=== PATIENT | male | born 1955 | race Caucasian/White ===

== ENCOUNTER 2020-02-11 11:36 | Inpatient (IN) | payer MEDICARE ==
[2020-02-11] MEDS ORDERED: Potassium Replacement Protocol 1 EACH MISC MISCELLANE PRN (13:15)
[2020-02-11] MEDS ORDERED: Magnesium Replacement Protocol 1 EACH MISC MISCELLANE PRN (13:16)
[2020-02-11 14:44] LABS: Anisocytosis Slight; Basophils # (A) 0.1 k/uL (0-0.2); Basophils % (A) 1 %; Eosinophils # (A) 0.2 k/uL (0-0.7); Eosinophils % (A) 2 %; HCT 32.5 % (39.0-53.0); HGB 9.9 gm/dL (13.0-17.5); Hypochromasia Marked; Lymphocytes # (A) 0.7 k/uL (1.0-4.8); Lymphocytes % (A) 11 %; MCH 22.3 pg (25.0-35.0); MCHC 30.4 g/dL (31.0-37.0); MCV 73.3 fL (80.0-100.0); Mean Platelet Volume 7.3; Microcytosis Moderate; Monocytes # (A) 0.6 k/uL (0-1.0); Monocytes % (A) 8 %; Neutrophils # (A) 5.1 k/uL (1.3-7.7); Neutrophils % (A) 75 %; Platelet Count 370 k/uL (150-450); RBC 4.44 m/uL (4.30-5.90); RDW 17.1 % (11.5-15.5); WBC 6.9 k/uL (3.8-10.6)
[2020-02-11 14:52] LABS: Albumin 3.2 g/dL (3.5-5.0); Calcium 8.4 mg/dL (8.4-10.2); Potassium 3.5 mmol/L (3.5-5.1); Total Bilirubin 0.4 mg/dL (0.2-1.3); Total Protein 6.5 g/dL (6.3-8.2)
[2020-02-11 14:54] LABS: INR 1.1 (<1.2); Prothrombin Time 11.1 sec (9.0-12.0)
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
[2020-02-11] MEDS ORDERED: ASPIRIN 325 MG TAB PO SCH (17:00)
--- NOTE | 2020-02-11 17:07 | HP ---
HISTORY AND PHYSICAL A 64-year-old white male who is admitted with a stroke on transfer to the hospital here from the [facility] due to neurologist being on staff here and not at the other hospital. He was found to have a CTA an aneurysm for which a transfer to a tertiary center is being planned. They added Plavix here on top of his aspirin, which we have been giving him and lovastatin which is carry over from the hospital. Three neurologists were discussed with on the phone yesterday, although none were available physically. Patient's transfer is pending at this point due to a 7 mm basal aneurysm. His CAT scan of his brain showed diffuse encephalopathy septal encephalomalacia throughout his brain, unclear etiology. His stroke symptoms are greatly improved with a systolic blood pressure has been elevated with IV fluids and cut out a lot of the cardiology medicines that the nutrition technician put him on to lower his blood pressure. Blood pressure 169/113, O2 is 94%, temp 98.2, pulse 75, respiratory rate 18 to 20. CARDIOVASCULAR: S1, S2. LUNGS: Clear. GI: Soft. NEUROLOGIC: His range of motion is full now x4 extremities. He has no slurred speech. No facial asymmetry. ASSESSMENT: 1. Status post cerebrovascular accident due to hypoperfusion from treatment of congestive heart failure with elevated BNP per Cardiology at the of the other hospital. Improvement with increased blood pressure continued to give him symptom resolution. Neurology is seeing him currently and we need to transfer him for possible interventional radiology treatment of his basal aneurysm versus neurosurgical treatment. Blood pressure is being allowed to stay low high today from hypoperfusion stroke which the symptoms are resolved. He has acute on chronic anemia from unclear etiology. 2. Acute on chronic renal insufficiency secondary to unclear etiology. Most likely longstanding history of hypertension untreated. He has heart medicine from 5 years ago. He stopped them and has never been on them since after he had 5 stents put in his heart, luckily he is still alive. [place] basal aneurysm intervention. MMODL / IJN: [id number] /
[2020-02-11] MEDS: PANTOPRAZOLE 40 MG/10 ML VIAL IVP SCH (17:28)
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
[2020-02-11] MEDS: ATORVASTATIN 40 MG TAB PO SCH (20:45)
[2020-02-11] MEDS ORDERED: ASPIRIN 81 MG PO SCH (21:15)
[2020-02-11] MEDS ORDERED: SODIUM CHLORIDE 0.9% 1,000 ML IV SCH (21:15)
[2020-02-11] MEDS: LISINOPRIL 5 MG TAB PO SCH (21:25)
[2020-02-11] MEDS: METOPROLOL SUCCINATE (ER) 50 MG TAB.ER.24H PO SCH (21:25)
[2020-02-12] MEDS: hydrALAZINE HCL 20 MG/ML 1 ML VIAL IV SCH ×3 (00:38→11:30)
[2020-02-12 05:14] LABS: Anisocytosis Slight; Basophils # (A) 0.1 k/uL (0-0.2); Basophils % (A) 1 %; Eosinophils # (A) 0.3 k/uL (0-0.7); Eosinophils % (A) 4 %; HCT 34.1 % (39.0-53.0); HGB 10.2 gm/dL (13.0-17.5); Hypochromasia Marked; Lymphocytes # (A) 0.8 k/uL (1.0-4.8); Lymphocytes % (A) 10 %; MCH 22.2 pg (25.0-35.0); MCV 74.1 fL (80.0-100.0); Mean Platelet Volume 7.3; Microcytosis Moderate; Monocytes # (A) 0.6 k/uL (0-1.0); Monocytes % (A) 8 %; Neutrophils # (A) 6.1 k/uL (1.3-7.7); Neutrophils % (A) 75 %; Platelet Count 431 k/uL (150-450); RDW 17.1 % (11.5-15.5); WBC 8.2 k/uL (3.8-10.6)
[2020-02-12 05:25] LABS: Albumin 3.2 g/dL (3.5-5.0); Calcium 8.3 mg/dL (8.4-10.2); Potassium 3.8 mmol/L (3.5-5.1); Total Bilirubin 0.5 mg/dL (0.2-1.3); Total Protein 6.7 g/dL (6.3-8.2)
[2020-02-12] MEDS ORDERED: ASPIRIN 81 MG PO SCH (09:00)
--- NOTE | 2020-02-12 09:11 | MR ---
EXAMINATION TYPE: MR angio head/neck wo con DATE OF EXAM: 02/12/2020 COMPARISON: None HISTORY: Leg weakness, SOB, Hx of cardiac issues per patient CONTRAST: None TECHNIQUE: Multiplanar multiecho imaging on a 3.0 Althea magnet is performed through the cheesh-na of [place] lis and carotid bifurcations. 3-D rkin-yq-syitng imaging is performed. Source images are reviewed o n the computer in the axial plane. Reconstructed images rotating on the computer are reviewed. FINDINGS: Carotid bifurcations: The common carotid arteries bifurcate normally into internal and external carot id arteries. Some slab reconstruction artifact is present. No obvious stenosis is evident. Right vert ebral artery is dominant. Reconstructed images have limited evaluation of the left vertebral artery w hich is better visualized on the source images. [place]: The internal carotid arteries bifurcate normally into A1 and M1 segments. The A2 s egments are normal. Middle cerebral artery branches are normal. Anterior communicating artery is patent. The right posterior communicating artery is patent. The left posterior communicating artery is absent. There is some fusiform prominence of the proximal basilar artery at the junction of the vertebral art eries. This tapers to more normal caliber within the brain. Posterior cerebral vasculature is normal. No suspicious aneurysm or aneurysmal dilatation is evident. No obstructions are identified. No si gnificant flow-limiting stenosis is evident. IMPRESSIONS: 1. NORMAL MRA [place]. 2. No significant flow-limiting stenosis bilateral carotid bifurcations.
[2020-02-12] MEDS: LISINOPRIL 5 MG TAB PO SCH (09:16)
[2020-02-12] MEDS: PANTOPRAZOLE 40 MG/10 ML VIAL IVP SCH (09:17)
[2020-02-12] MEDS: METOPROLOL SUCCINATE (ER) 50 MG TAB.ER.24H PO SCH (09:17)
[2020-02-12] MEDS: ASPIRIN 81 MG PO SCH (09:17)
[2020-02-12] MEDS: CLOPIDOGREL 75 MG TAB PO SCH (09:17)
[2020-02-12] MEDS ORDERED: amLODIPine 5 MG TAB PO SCH (10:30)
--- NOTE | 2020-02-12 11:05 | MR ---
EXAMINATION TYPE: MR brain wo con DATE OF EXAM: 02/12/2020 COMPARISON: None HISTORY: Leg weakness, SOB, Hx of cardiac issues per patient CONTRAST: Performed utilizing 0 mL intravenous Gadavist gadolinium contrast. TECHNIQUE: Multiplanar, multiecho imaging on a 3.0 Althea magnet is performed through the brain. Stud y is performed within 24 hours of arrival to the hospital. The craniovertebral junction is normal. The pituitary is normal. Diffusion-weighted imaging is performed. There is hyperintensity within the right humphrey radiata. Sc attered hyperintensities are within the left centrum semiovale. Findings are compatible with acute is chemic changes. Note is made of an old lacunar infarct within the left cerebellum. Extensive confluent Periventricular white matter ischemic changes are present diffusely. There is drew e hyperintensity within the bilateral thalami and within the brainstem most likely on the basis of ch ronic white matter ischemic changes. Ventricles and sulci are prominent for the patient age. IMPRESSIONS: 1. Acute scattered focal areas of microvascular ischemic change within the right humphrey radiata and l eft centrum semiovale. 2. Extensive confluent prior microvascular ischemic type changes in the periventricular and deep whit e matter. 3. Old left cerebellar lacunar infarct. 4. Fusiform prominence of the proximal basilar artery is noted on the MRA.
[2020-02-12] MEDS ORDERED: hydrALAZINE HCL 25 MG TAB PO SCH (14:45)
[2020-02-12] MEDS: hydrALAZINE HCL 25 MG TAB PO SCH ×2 (14:54→21:54)
[2020-02-12] MEDS: AZITHROMYCIN 500 MG in SODIUM CHLORIDE 0.9% 250 ML IVPB SCH (15:01)
--- NOTE | 2020-02-12 15:58 | CONS ---
CONSULTATION DATE OF SERVICE: 02/12/2020 REQUESTING PHYSICIAN: Dr. Carter Wilkinson REASON FOR CONSULTATION: Microcytic hypochromic anemia/iron-deficiency anemia. HISTORY OF PRESENT ILLNESS: The patient is a 64-year-old, pleasant, white male who was transferred from [facility] for possible stroke. He presented to [facility] with left arm weakness and subsequently had a CTA that found an aneurysm. He was started on aspirin and Plavix and was transferred here for further management. While in the hospital he was noted to have anemia with a hemoglobin of 8.5 g/dL and iron indices consistent with iron-deficiency anemia and, hence, we are consulted with regard to this issue. The patient is feeling better today. He denies any abdominal pain. No nausea or vomiting. No rectal bleeding or melena. He denies any peptic ulcer disease. No recent NSAID use. He never had EGD or colonoscopy in the past. PAST MEDICAL HISTORY: Coronary artery disease, hypertension, hyperlipidemia, and history of PA in the past, questionable remote history of hepatitis B in 1971 but patient does not recall any details. PAST SURGICAL HISTORY: Tonsillectomy, cardiac catheterization with stent placement, bilateral hip replacement. MEDICATIONS: Medications at home include aspirin. ALLERGIES: MOLD. SOCIAL HISTORY: Chronic smoker. Occasional alcohol use. FAMILY HISTORY: Father of alcoholism. Mother healthy. REVIEW OF SYSTEMS: CARDIOPULMONARY: No chest pain or shortness of breath. GENITOURINARY: He denies any dysuria or hematuria. MUSCULOSKELETAL: Unremarkable. SKIN: Unremarkable. ENDOCRINE: Unremarkable. PSYCHIATRIC: Unremarkable. NEUROLOGY: Unremarkable. ENT/VISION: Unremarkable. CONSTITUTIONAL: No recent weight loss. No fever, chills, night sweats. PHYSICAL EXAMINATION: VITAL SIGNS: Stable. Blood pressure is 191/119, pulse rate 76, temperature 97.6. HEENT: Examination unremarkable. Conjunctivae are pink. Sclerae nonicteric. Oral cavity no lesions. NECK: No JVD or lymph node enlargement. CHEST: Clear to auscultation. HEART: Regular rate and rhythm. ABDOMEN: Soft. Bowel sounds are positive. No organomegaly. EXTREMITIES: No pedal edema. SKIN: No rashes. NEUROLOGIC: Alert and oriented x3. No focal deficits. LABS: Labs from today, WBC 5.6, hemoglobin 9.9, MCV is 73, platelets are normal. BUN 27, creatinine 1.45. Iron indices consistent with iron-deficiency anemia with a ferritin of 31, iron saturation of 3% and TIBC of 305. IMPRESSION: 1. Recent cerebrovascular accident, for which Neurology is following the patient closely. 2. Microcytic hypochromic anemia and iron indices consistent with iron-deficiency anemia. Clinically, no evidence of active ongoing bleeding. 3. Uncontrolled hypertension. RECOMMENDATIONS: 1. Continue with dual antiplatelet therapy as per Neurology for recent stroke. 2. In regard to the iron-deficiency anemia, I did mention to the patient that he needs to have an EGD and colonoscopy done on an outpatient basis once his blood pressure is controlled and stroke has been improved. I suggested that he can followup in the office in 3 to 4 weeks following discharge from the hospital, at which time we will plan on further investigation. In the meantime, we will start him on iron supplements 1 tablet twice daily. We will follow with a CBC tomorrow and follow with you closely. Thank you for this consultation. RACHEL / FRANN: [id number] /
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
[2020-02-12] MEDS: FERROUS SULFATE 325 MG TAB PO SCH (16:46)
--- NOTE | 2020-02-12 19:51 | P.PN ---
Subjective Progress Note Date: 02/12/20 upon today's evaluation, the patient reports that he failed to tell me yesterday of a visual defect that he noted that happened several days before his admission. He reports that in the left eye the pupil area that there is a green discoloration. When he looks with both eyes open it is not there but when he closes 1 eye only and only looks out of his left eye this defect appears. Objective - Vital Signs Vital signs: Vital Signs Temp 98.1 F 02/12/20 14:53 Pulse 86 02/12/20 14:53 Resp 18 02/12/20 14:53 BP 171/105 02/12/20 16:54 Pulse Ox 96 02/12/20 14:53 Intake & Output 02/12/20 02/12/20 02/13/20 06:59 18:59 06:59 Intake Total 600 Output Total 335 Balance -335 600 Weight 76.3 kg Intake: Oral 600 Output: Urine 335 Other: # Voids 1 3 # Bowel Movements 1 - Exam Patient examined and chart reviewed. Review of cardiac echo from outside reveals severely elevated left atrial pressure with an ejection fraction 4550%. Severe concentric left ventricular hypertrophy. Mild/moderate regurgitation of all valves noted. Neurological exam Mental status: Awake alert oriented 3. Speech fluent. Affect appropriate. Pu pils equally reactive to light and accommodation. Visual field examination remains intact to finger counting in all 4 quadrants. Cranial nerve examination: Cranial nerves III through XII are intact. Motor examination normal muscle bulk and tone throughout. Pronator drift negative. Strength now is 5 out of 5 throughout. No involuntary movements noted. Coordination testing: Intact to finger to nose testing rapid sequential finger tapping. No dysmetria noted. Sensory examination grossly intact to light touch and pinprick pinprick throughout. Gait examination: Patient is able to ambulate without difficulty gait is slightly wide-based but not ataxic. MRI of the brain was completed today along with MRA of the head and neck. MRI shows evidence of scattered focal areas of microvascular ischemic changes involving the right humphrey radiata and left centrum semiovale. There is extensive confluent prior microvascular ischemic changes involving the periventricular white matter and deep white matter - Labs CBC & Chem 7: 02/12/20 04:58 02/12/20 04:58 Labs: Abnormal Lab Results - Last 24 Hours (Table) 02/12/20 02/12/20 Range/Units 04:58 04:58 Hgb 10.2 L (13.0-17.5) gm/dL Hct 34.1 L (39.0-53.0) % MCV 74.1 L (80.0-100.0) fL MCH 22.2 L (25.0-35.0) pg MCHC 30.0 L (31.0-37.0) g/dL RDW 17.1 H (11.5-15.5) % Lymphocytes # 0.8 L (1.0-4.8) k/uL Chloride 108 H (98-107) mmol/L BUN 22 H (9-20) mg/dL Calcium 8.3 L (8.4-10.2) mg/dL Albumin 3.2 L (3.5-5.0) g/dL Assessment and Plan Plan: Assessment: 64-year-old gentleman presenting with hypertensive emergency still with diastolic blood pressure elevated. Difficult response to antihypertensive medications. MRI evidence shows microvascular changes involving the areas mentioned above the right humphrey radiata left centrum semiovale primarily old areas of ischemic changes. No acute infarct noted. Follow-up of the MRA of the head does not describe what was noted on the CT angiogram of the head the fusiform basilar artery aneurysm. This must be review ed with caution and would be best to be discussed with radiology. A CT angiogram is considered. Should MRA when evaluating aneurysms. The gold standard however is a 4 vessel cerebral angiogram. Today's neurological exam has improved there is no proximal weakness noted in the left upper extremity as noted yesterday. The new information the patient was provided regarding the visual defect is concerning for a visual field defect. Summary 1. Hypertensive emergency/urgency 2. Coronary artery disease with diastolic congestive heart failure. 3. Improving neurological exam now back to near baseline. 4. Iron deficiency anemia. 5. Drug resistant hypertension. 6. Discrepancy in report between CT angiogram and MRA of the brain regarding basilar artery. Aneurysm versus no aneurysm. Recommendations 1. Continue with management of maintaining diastolic blood pressure less than 90 and systolic blood pressure less than 140. 2. Continue with dual antiplatelet therapy. 3. Recommend obtaining cardiology consult before clearing discharged to home. 4. Patient will need to follow up with neurology within the next several weeks for continued monitoring on dual antiplatelet therapy. 5. Arranged to discuss further MRA findings on the basilar artery appeared to have a CT and 2. Arranged to have a formal discussion with radiology tomorrow. 6. Suspect this patient has undiagnosed sleep apnea which is leading to drug resistant hypertension. Patient should have arranged on discharge several sites that he can have this further evaluated at. 7. Patient requires assistance in accessing healthcare. Believe he does not have a primary care physician at this time. 8. Patient will need to have further evaluation with ophthalmology on this visual defect. Describing. He will need formal visual field evaluation. This could represent occlusion of the retinal artery. 9. Continue with neuro checks every 4 hours while awake per nursing protocol. This patient's prognosis remains guarded. Further recommendations will be made as this case evolves. I anticipate this patient can have discharged once he is cleared by cardiology. Neurology will see this patient also tomorrow before discharge to finalize plan and answering the questions for the patient before discharge.
[2020-02-12] MEDS: ATORVASTATIN 40 MG TAB PO SCH (21:54)
[2020-02-13] MEDS: FERROUS SULFATE 325 MG TAB PO SCH ×2 (05:57→17:14)
[2020-02-13] MEDS: PANTOPRAZOLE 40 MG TABLET PO SCH (05:57)
[2020-02-13] MEDS: ASPIRIN 81 MG PO SCH (08:44)
[2020-02-13] MEDS: METOPROLOL SUCCINATE (ER) 50 MG TAB.ER.24H PO SCH (08:44)
[2020-02-13] MEDS: CLOPIDOGREL 75 MG TAB PO SCH (08:44)
[2020-02-13] MEDS: hydrALAZINE HCL 25 MG TAB PO SCH ×3 (08:45→20:46)
[2020-02-13] MEDS: LISINOPRIL 5 MG TAB PO SCH (08:45)
[2020-02-13 09:23] LABS: Anisocytosis Slight; HCT 35.5 % (39.0-53.0); HGB 10.8 gm/dL (13.0-17.5); Hypochromasia Moderate; MCH 22.6 pg (25.0-35.0); MCHC 30.4 g/dL (31.0-37.0); MCV 74.2 fL (80.0-100.0); Mean Platelet Volume 7.6; Microcytosis Moderate; Platelet Count 377 k/uL (150-450); RBC 4.78 m/uL (4.30-5.90); RDW 17.5 % (11.5-15.5); WBC 9.6 k/uL (3.8-10.6)
[2020-02-13 09:43] LABS: Calcium 8.4 mg/dL (8.4-10.2); Potassium 3.9 mmol/L (3.5-5.1)
[2020-02-13] MEDS: amLODIPine 5 MG TAB PO SCH (10:17)
[2020-02-13] MEDS ORDERED: hydrALAZINE HCL 25 MG TAB PO STA (10:39)
[2020-02-13] MEDS: ALPRAZolam 0.25 MG TAB PO PRN ×2 (11:14→20:46)
[2020-02-13] MEDS: AZITHROMYCIN 500 MG in SODIUM CHLORIDE 0.9% 250 ML IVPB SCH (11:50)
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
--- NOTE | 2020-02-13 13:13 | PN ---
PROGRESS NOTE DATE OF DICTATION: 02/13/2020 Patient is a 64-year-old pleasant white male, recently diagnosed with CVA secondary to a small basilar artery aneurysm and presently being evaluated by neurologist. During this hospitalization he was noted to have anemia with a hemoglobin of 10.8 g/dL and further investigations revealed iron-deficiency anemia. The patient denies any GI symptoms. No abdominal pain. No nausea, vomiting. No rectal bleeding or melena. He denies any neurological symptoms. He did have some blurred vision and weakness of his left side of the body, which has completely resolved. PHYSICAL EXAMINATION: He appears comfortable, in no apparent distress. Vital signs are stable. Blood pressure is 201/120, pulse rate 79, and temperature 98. HEENT: Examination unremarkable, conjunctivae are pink, sclerae nonicteric, oral cavity no lesions. NECK: No JVD or lymph node enlargement. CHEST: Clear to auscultation. HEART: Regular rate and rhythm. ABDOMEN: Soft. Bowel sounds are positive. No organomegaly. EXTREMITIES: No pedal edema. SKIN: No rashes. NEUROLOGIC: Alert and oriented x3. No focal deficits. LABS: WBC 9.6, hemoglobin 10.8, platelets normal. Basic metabolic panel is within normal limits. IMPRESSION: 1. Iron-deficiency anemia secondary to occult gastrointestinal blood loss. Clinically no evidence of active ongoing bleeding. Patient presently on aspirin and Plavix for recent cerebrovascular accident. No prior history of EGD or colonoscopy in the past. 2. Recent cerebrovascular accident, being investigated by Neurology. He remains on aspirin and Plavix, currently. 3. Right lower lobe community-acquired pneumonia on broad-spectrum antibiotics. 4. History of coronary artery disease, status post myocardial infarction and stent placement in the past. RECOMMENDATION: 1. Continue with current medications and continue with antibiotics. 2. I had a lengthy discussion with the patient regarding further workup for iron- deficiency anemia, which will include an EGD and colonoscopy and advised him to follow up in the office in 2-3 weeks following discharge from the hospital and will consider this on outpatient basis. Thank you for this consultation. RACHEL / BIENVENIDO: [id number] /
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
[2020-02-13] MEDS: METOPROLOL TARTRATE 50 MG TAB PO SCH (20:46)
[2020-02-13] MEDS: ATORVASTATIN 40 MG TAB PO SCH (20:46)
[2020-02-14] MEDS: hydrALAZINE HCL 20 MG/ML 1 ML VIAL IVP PRN ×3 (03:41→23:53)
[2020-02-14] MEDS: FERROUS SULFATE 325 MG TAB PO SCH ×2 (06:31→14:59)
[2020-02-14] MEDS: PANTOPRAZOLE 40 MG TABLET PO SCH (06:31)
[2020-02-14 08:43] LABS: Anisocytosis Slight; HCT 36.4 % (39.0-53.0); Hypochromasia Moderate; MCH 22.2 pg (25.0-35.0); MCHC 30.1 g/dL (31.0-37.0); MCV 73.7 fL (80.0-100.0); Mean Platelet Volume 7.4; Microcytosis Moderate; Platelet Count 407 k/uL (150-450); RBC 4.94 m/uL (4.30-5.90); RDW 17.5 % (11.5-15.5); WBC 9.4 k/uL (3.8-10.6)
[2020-02-14 08:57] LABS: Calcium 8.5 mg/dL (8.4-10.2); Potassium 4.3 mmol/L (3.5-5.1)
--- NOTE | 2020-02-14 09:31 | ECHOF ---
Referral Reason:cva MEASUREMENTS -------- HEIGHT: 180.3 cm WEIGHT: 77.1 kg BP: RVIDd: 2.9 cm (< 3.3) IVSd: 2.1 cm (0.6 - 1.1) LVIDd: 4.0 cm (3.9 - 5.3) LVPWd: 2.1 cm (0.6 - 1.1) IVSs: 2.6 cm LVIDs: 2.7 cm LVPWs: 2.4 cm LAESV Index (A-L): 34.43 ml/m Ao Diam: 3.0 cm (2.0 - 3.7) AV Cusp: 2.2 cm (1.5 - 2.6) LA Diam: 3.2 cm (2.7 - 3.8) MV EXCURSION: 13.883 mm (> 18.000) MV EF SLOPE: 98 mm/s (70 - 150) EPSS: 0.6 cm MV E Jc: 0.73 m/s MV DecT: 96 ms MV A Jc: 0.93 m/s MV E/A Ratio: 0.79 AR PHT: 852 ms RAP: 15.00 mmHg RVSP: 23.15 mmHg FINDINGS -------- Sinus rhythm. This was a technically good study. The left ventricular size is normal. There is severe concentric left ventricular hypertrophy. Ove rall left ventricular systolic function is low-normal with, an EF between 50 - 55 %. Increased LAP Grade 2 Diastolic Dysfunction. The right ventricle is normal in size. LA is moderately dilated 34-39 ml/m2 The right atrial size is normal. Aortic valve is trileaflet and is mildly thickened. There is mild aortic regurgitation. The mitral valve leaflets are mildly thickened. Mild mitral regurgitation is present. The tricuspid valve appears structurally normal. Mild tricuspid regurgitation present. Right vent ricular systolic pressure is normal at < 35 mmHg. There is no pulmonic regurgitation present. The aortic root size is normal. The inferior vena cava is mildly dilated. There is a small, generalized pericardial effusion present. CONCLUSIONS -------- 1. There is severe concentric left ventricular hypertrophy. 2. Overall left ventricular systolic function is low-normal with, an EF between 50 - 55 %. 3. Increased LAP Grade 2 Diastolic Dysfunction. 4. LA is moderately dilated 34-39 ml/m2 5. Aortic valve is trileaflet and is mildly thickened. 6. There is mild aortic regurgitation. 7. The mitral valve leaflets are mildly thickened. 8. Mild mitral regurgitation is present. 9. Mild tricuspid regurgitation present. 10. Right ventricular systolic pressure is normal at < 35 mmHg. 11. There is no pulmonic regurgitation present. 12. The aortic root size is normal. 13. The inferior vena cava is mildly dilated. 14. There is a small, generalized pericardial effusion present. [employer]: Maricel Brown RDCS
[2020-02-14] MEDS: hydrALAZINE HCL 25 MG TAB PO SCH ×3 (10:10→21:57)
[2020-02-14] MEDS: AZITHROMYCIN 500 MG in SODIUM CHLORIDE 0.9% 250 ML IVPB SCH (10:11)
[2020-02-14] MEDS: CLOPIDOGREL 75 MG TAB PO SCH (10:11)
[2020-02-14] MEDS: METOPROLOL TARTRATE 50 MG TAB PO SCH ×2 (10:11→20:25)
[2020-02-14] MEDS: amLODIPine 5 MG TAB PO SCH (10:11)
[2020-02-14] MEDS: ASPIRIN 81 MG PO SCH (10:11)
[2020-02-14] MEDS: LISINOPRIL 20 MG TAB PO SCH (10:11)
--- NOTE | 2020-02-14 15:36 | PN ---
PROGRESS NOTE DATE OF DICTATION: 02/14/2020 Patient is a 64-year-old white male admitted to the hospital with CVA and was noted to have iron deficiency anemia. He denies any GI symptoms. He reports no abdominal pain. No rectal bleeding or melena. He is being followed by Neurology. PHYSICAL EXAMINATION: On physical examination, vital signs are stable. Blood pressure is 178/88, pulse rate 87, and temperature 98. HEENT: Examination unremarkable, conjunctivae are pink, sclerae nonicteric, oral cavity no lesions. NECK: No JVD or lymph node enlargement. CHEST: Clear to auscultation. HEART: Regular rate and rhythm. ABDOMEN: Soft. Bowel sounds are positive. No organomegaly. EXTREMITIES: No pedal edema. SKIN: No rashes. NEUROLOGIC: Alert and oriented x3. No focal deficits. LABS: Hemoglobin 11. BUN and creatinine are 23 and 1.24 respectively. IMPRESSION: 1. New-onset cerebrovascular accident with no residual weakness. 2. Uncontrolled hypertension. 3. Iron deficiency anemia. 4. History of congestive heart failure. RECOMMENDATION: 1. Continue management, continue current medications. 2. Monitor CBC on a daily basis. 3. Continue Protonix 40 mg daily. 4. Plan is to proceed with an EGD and colonoscopy on an outpatient basis. Thank you for this consultation. MMODL / IJN: [id number] /
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
[2020-02-14 16:12] VITALS: RESP 16
[2020-02-14] MEDS: ATORVASTATIN 40 MG TAB PO SCH (20:25)
[2020-02-15] MEDS: PANTOPRAZOLE 40 MG TABLET PO SCH (06:37)
[2020-02-15] MEDS: FERROUS SULFATE 325 MG TAB PO SCH (06:37)
[2020-02-15 08:15] LABS: Calcium 8.6 mg/dL (8.4-10.2); Potassium 4.3 mmol/L (3.5-5.1)
[2020-02-15] MEDS ORDERED: AZITHROMYCIN 500 MG TAB PO SCH (09:00)
[2020-02-15] MEDS: LISINOPRIL 20 MG TAB PO SCH (09:01)
[2020-02-15] MEDS: CLOPIDOGREL 75 MG TAB PO SCH (09:02)
[2020-02-15] MEDS: hydrALAZINE HCL 25 MG TAB PO SCH (09:02)
[2020-02-15] MEDS: ASPIRIN 81 MG PO SCH (09:02)
[2020-02-15] MEDS: METOPROLOL TARTRATE 50 MG TAB PO SCH (09:02)
[2020-02-15] MEDS: amLODIPine 5 MG TAB PO SCH (09:02)
--- NOTE | 2020-02-15 11:10 | PN ---
PROGRESS NOTE DATE OF SERVICE: 02/15/2020 Patient is a 64-year-old pleasant white male admitted to the hospital with acute CVA, presently on aspirin and Plavix. He is doing well. Has no recent new symptoms of weakness. He was started on iron supplement for iron-deficiency anemia and he has been having some dark-colored stools. He denies any abdominal pain, reports no nausea, vomiting. PHYSICAL EXAMINATION: He appears comfortable, in no apparent distress. Vital signs are stable. Blood pressure is 153/86, pulse is 74, temperature 97.8. HEENT: Examination unremarkable, conjunctivae are pink, sclerae nonicteric, oral cavity no lesions. NECK: No JVD or lymph node enlargement. CHEST: Clear to auscultation. HEART: Regular rate and rhythm. ABDOMEN: Soft, it was nontender, nondistended. Bowel sounds are positive. No organomegaly. EXTREMITIES: No pedal edema. SKIN: No rashes. NEURO: He is alert and oriented x3. No focal deficits. LABS: From yesterday, hemoglobin was 11. The rest of the basic metabolic panel is within normal limits. IMPRESSION: 1. New onset cerebrovascular accident, has significantly improved with no residual weakness. He remains on aspirin and Plavix. 2. Uncontrolled hypertension, improving. 3. Iron-deficiency anemia with stable hemoglobin, started on iron supplements and hemoglobin has improved to 11 g/dL. He has been having some dark-colored stools, likely explained on the basis of iron supplements. RECOMMENDATIONS: 1. Continue with aspirin and Plavix. 2. Patient wants to have endoscopy in workup while in the hospital, but because of the recent episode of CVA and the need for anticoagulation, I recommended that we will consider this on an outpatient basis in 6 weeks. He is agreeable with this plan. Thank you for this consultation. MMODL / IJN: [id number] /
[2020-02-15 12:17] VITALS: BP 150/82; PULSE 70; TEMP 97.7
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
== END 2020-02-15 14:30 | disposition home or self-care (01) | DRG 64 ==
LOC: 3SCARD 13:09
PROVIDERS: ADMIT Family Medicine; ATTEND Family Medicine
DX: I63.212 Cerebral infarction due to unspecified occlusion or stenosis of left vertebral artery (principal); I50.43 Acute on chronic combined systolic (congestive) and diastolic (congestive) heart failure; J18.9 Pneumonia, unspecified organism; I13.0 Hypertensive heart and chronic kidney disease with heart failure and stage 1 through stage 4 chronic kidney disease, or unspecified chronic kidney disease; I16.1 Hypertensive emergency; J44.0 Chronic obstructive pulmonary disease with (acute) lower respiratory infection; N17.9 Acute kidney failure, unspecified; I65.23 Occlusion and stenosis of bilateral carotid arteries; G93.89 Other specified disorders of brain; D50.0 Iron deficiency anemia secondary to blood loss (chronic); E78.5 Hyperlipidemia, unspecified; F17.210 Nicotine dependence, cigarettes, uncomplicated; F32.9 Major depressive disorder, single episode, unspecified; F41.0 Panic disorder [episodic paroxysmal anxiety]; G47.30 Sleep apnea, unspecified; I25.10 Atherosclerotic heart disease of native coronary artery without angina pectoris; I25.2 Old myocardial infarction; N18.2 Chronic kidney disease, stage 2 (mild); R29.810 Facial weakness; M54.9 Dorsalgia, unspecified; R47.81 Slurred speech; H53.8 Other visual disturbances; G83.14 Monoplegia of lower limb affecting left nondominant side; R29.708 NIHSS score 8; R59.0 Localized enlarged lymph nodes; G89.29 Other chronic pain; M54.2 Cervicalgia; R01.1 Cardiac murmur, unspecified; Z86.73 Personal history of transient ischemic attack (TIA), and cerebral infarction without residual deficits; Z96.643 Presence of artificial hip joint, bilateral; Z95.5 Presence of coronary angioplasty implant and graft; Z91.19 Patient's noncompliance with other medical treatment and regimen; Z87.828 Personal history of other (healed) physical injury and trauma; Z86.14 Personal history of Methicillin resistant Staphylococcus aureus infection; Z79.82 Long term (current) use of aspirin; Z91.048 Other nonmedicinal substance allergy status
CPT/HCPCS: 70544; 70547; 70551; 80048; 80053; 80061; 83735; 85025; 85027; 85610; 93306

== ENCOUNTER 2021-03-18 03:03 | Emergency (ER) | payer MEDICARE ==
[2021-03-18 03:12] VITALS: RESP 16; TEMP 98
[2021-03-18 03:29] LABS: Anisocytosis Slight; Basophils # (A) 0.1 k/uL (0-0.2); Basophils % (A) 1 %; Eosinophils % (A) 0 %; HCT 36.4 % (39.0-53.0); HGB 12.3 gm/dL (13.0-17.5); Lymphocytes # (A) 0.7 k/uL (1.0-4.8); Lymphocytes % (A) 6 %; MCHC 33.7 g/dL (31.0-37.0); Mean Platelet Volume 6.8; Microcytosis Slight; Monocytes # (A) 0.6 k/uL (0-1.0); Monocytes % (A) 5 %; Neutrophils # (A) 10.5 k/uL (1.3-7.7); Neutrophils % (A) 88 %; Platelet Count 312 k/uL (150-450); RBC 4.73 m/uL (4.30-5.90); RDW 16.4 % (11.5-15.5)
[2021-03-18 03:39] LABS: Albumin 3.9 g/dL (3.5-5.0); Calcium 9.1 mg/dL (8.4-10.2); Potassium 3.9 mmol/L (3.5-5.1); Total Bilirubin 0.5 mg/dL (0.2-1.3); Total Protein 6.9 g/dL (6.3-8.2)
[2021-03-18] MEDS ORDERED: MORPHINE SULFATE 4 MG/ML SYRINGE IV STA (03:45)
[2021-03-18] MEDS ORDERED: METOPROLOL TARTRATE 5 MG/5 ML VIAL IVP STA (03:45)
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
--- NOTE | 2021-03-18 03:52 | XR ---
EXAM: XR Chest, 2 Views CLINICAL HISTORY: Chest Pain TECHNIQUE: Frontal and lateral views of the chest. COMPARISON: 10/14/16 FINDINGS: Lungs: Small amount of linear lung base, likely atelectasis versus scarring. Pleural space: Unremarkable. No pneumothorax. Heart: Unremarkable. No cardiomegaly. Mediastinum: Unremarkable. Bones/joints: ACDF. Vasculature: Aortic arch is increased from 4.6 to 5.6 cm in maximal transverse dimension, beyond its mural calcifications IMPRESSION: Aortic arch is increased from 4.6 to 5.6 cm in maximal transverse dimension, beyond mural calcification, suggest aneurysm, dissection, mural hematoma or surrounding mass lesion. CT chest with IV contrast may help to further evaluate if clinically indicated. <MYCVCSECTION> Communications: 03/18/21 03:56 Verify Receipt Verified receipt with [facility] in ER for Dr. Devine on 03/18 03:57 (-04:00)
[2021-03-18 03:54] LABS: INR 1.1 (<1.2)
[2021-03-18 03:55] LABS: Prothrombin Time 11.2 sec (9.0-12.0)
[2021-03-18] MEDS ORDERED: LABETALOL 5 MG/ML VIAL MDV IVP STA (03:57)
[2021-03-18] MEDS ORDERED: LABETALOL SYRINGE 5 MG/ML IVP STA ×2 (04:03→04:29)
[2021-03-18] MEDS ORDERED: ESMOLOL IN SODIUM CHLORIDE PMX 2.5 GM in SALINE 1 250ML.BAG IV ONE (04:29)
[2021-03-18] MEDS ORDERED: HYDROmorphone 1 MG/ML 1 ML SYRINGE IVP STA ×2 (04:29→05:04)
[2021-03-18 04:33] LABS: D-Dimer 6.53 mg/L FEU (<0.60)
[2021-03-18] MEDS ORDERED: ENALAPRILAT 1.25 MG/ML 1 ML VIAL IVP STA (05:04)
--- NOTE | 2021-03-18 05:07 | CT ---
EXAM: CT Chest With Intravenous Contrast CLINICAL HISTORY: ITS.REASON CT Reason: possible dissection TECHNIQUE: Axial computed tomographic images of the chest with intravenous contrast. CTDI is 47.792 mGy and DLP is 481.75 mGy-cm. This CT exam was performed using one or more of the following dose reduction techniques: automated exposure control, adjustment of the mA and/or kV according to patient size, and/or use of iterative reconstruction technique. Coronal and sagittal reformatted images were created and reviewed. COMPARISON: Chest radiograph from today. FINDINGS: Pulmonary arteries: Unremarkable. No pulmonary embolism. Aorta: Small amount of extraluminal hemorrhage surrounding the aortic arch more laterally into superior mediastinum. No thoracic aortic aneurysm. Great vessels of aortic arch: Dion type B dissection starting from just distal to the takeoff of left subclavian artery and terminates at takeoff of celiac artery. Lungs: Moderate centrilobular pulmonary emphysema. 7.5 x 9 cm bullous changes of medial left lung base. Pleural space: Unremarkable. No significant effusion. No pneumothorax. Heart: Unremarkable. No cardiomegaly. No significant pericardial effusion. No evidence of RV dysfunction. Bones/joints: Moderate degenerative changes. Soft tissues: Unremarkable. Lymph nodes: Unremarkable. No enlarged lymph nodes. IMPRESSION: 1. Dion type B dissection starting from just distal to the takeoff of left subclavian artery and terminates at takeoff of celiac artery. 2. Small amount of extraluminal hemorrhage surrounding the aortic arch more laterally into superior mediastinum indicate aortic rupture. 3. Moderate centrilobular pulmonary emphysema. EXAM: CT Abdomen and Pelvis With Intravenous Contrast CLINICAL HISTORY: ITS.REASON CT Reason: possible dissection TECHNIQUE: Axial computed tomographic images of the abdomen and pelvis with intravenous contrast. CTDI is 47.792 mGy and DLP is 481.75 mGy-cm. This CT exam was performed using one or more of the following dose reduction techniques: automated exposure control, adjustment of the mA and/or kV according to patient size, and/or use of iterative reconstruction technique. Coronal and sagittal reformatted images were created and reviewed. COMPARISON: No relevant prior studies available. FINDINGS: VASCULATURE: Aorta: No acute findings. No abdominal aortic aneurysm. No dissection. Celiac trunk and mesenteric arteries: Celiac artery appear to receive blood flow from both false and true lumens best seen on series 501 image 87. Renal arteries: Moderate (50-70%) stenosis of 1.5 cm segment of proximal left renal artery best on series 501 image 99. Iliac arteries: 1.6 cm saccular aneurysm of proximal left internal iliac artery on series 501 image 150. Short segmental, severe (about 80%) stenosis of proximal right internal iliac artery on series 501 image 154. Lung bases: Unremarkable. No mass. No consolidation. ABDOMEN: Liver: Unremarkable. No mass. Gallbladder and bile ducts: Unremarkable. No calcified stones. No ductal dilation. Pancreas: Unremarkable. No ductal dilation. No mass. Spleen: Unremarkable. No splenomegaly. Adrenals: Unremarkable. No mass. Kidneys and ureters: Subcentimeter posterior left renal cyst, too small to characterize. No hydronephrosis. Stomach and bowel: Mild colonic diverticulosis. PELVIS: Appendix: Normal. Bladder: Unremarkable. No mass. Reproductive: Unremarkable as visualized. ABDOMEN and PELVIS: Intraperitoneal space: Unremarkable. No significant fluid collection. No free air. Bones/joints: Moderate degenerative changes. Grade 1 retrolisthesis of L5 on S1. Soft tissues: Unremarkable. Lymph nodes: Unremarkable. No enlarged lymph nodes. IMPRESSION: 1. Moderate (50-70%) stenosis of 1.5 cm segment of proximal left renal artery 2. Celiac artery appear to receive blood flow from both false and true lumens of a Dion type B aortic dissection. 3. 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 4. Short segmental, severe (about 80%) stenosis of proximal right internal iliac artery. <MYCVCSECTION> Communications: 03/18/21 05:14 Call Doctor Regarding Active Bleeding in any site, called Dr. Powers on 03/18 05:14 (-04:00) 03/18/21 05:14 Call Doctor Regarding Aortic Dissection, called Dr. Powers on 03/18 05:14 (-04:00)
[2021-03-18 05:12] VITALS: PULSE 58
[2021-03-18 05:24] VITALS: BP 139/92
== END 2021-03-18 05:22 | disposition other institution (70) ==
LOC: EC 03:03
DX: I25.10 Atherosclerotic heart disease of native coronary artery without angina pectoris (principal); I25.2 Old myocardial infarction; I10 Essential (primary) hypertension; E78.5 Hyperlipidemia, unspecified; Z95.5 Presence of coronary angioplasty implant and graft; Z90.09 Acquired absence of other part of head and neck; F32.9 Major depressive disorder, single episode, unspecified; F12.90 Cannabis use, unspecified, uncomplicated
CPT/HCPCS: 36415; 93005; 85379; 80053; 82150; 83690; 83735; 84484; 85025; 85610; 85730; 71046; 71275; 74174; 99291; 96365; 96375 ×5; 96376 ×2; J2270; J1170; Q9967